=== PATIENT | female | born 1960 | race Caucasian/White ===

== ENCOUNTER 2025-10-10 08:58 | Outpatient (REF) | payer BC, SELFPAY ==
--- OUTSIDE RECORDS SUMMARY | 2025-10-10 10:24 | XMS_ITS | Encounter Summary ---
Author Organization [facility] Address [id number] [place] [address] Phone Care Team Providers Care Postal Support Employee Name Role Phone Tammi Lorenz MD Primary Care Provide r Parish Hopkins MD Unavailable Unavailable Encounter Details Date Type Department Care Team ([facility] st Contact Info) Description 07/24/2021 Procedure Pass [facility] Cardiac Echo [address] [facility] [address] [place] [address] Social History Tobacco Use Types Packs/Day Years Used Date Smoking Tobacco: Never Smokeless Tobacco: Never Comments Unknown Sex and Gender Information Value Date Recorded Sex Assigned at Not on file Legal Sex Female 6:02 PM EST Gender Identity Not on file Sexual Orientation Not on file documented as of this encounter Plan of Treatment Not on file documented as of this encounter Visit Diagnoses Not on filedocumented in this encounter Additional Health Concerns Assessment Noted Time PHQ-2 Depression Total Score: 0 07/23/20 19 10:27 AM EDT documented as of this encounter Care Teams Postal Support Employee Relationship Specialty Start Date End Date Tammi Lorenz MD [address] [address] PCP - General 03/16/15 Parish Hopkins MD Historical LMR Provider 03/24/15 11/17/21 documented as of this encounter Additional Source Comments The information contained in this document represents components of the legal health record. It is not the complete legal health record.[facility]
--- OUTSIDE RECORDS SUMMARY | 2025-10-10 10:24 | XMS_ITS | Clinical Summary ---
Author Organization 299 [facility] Address [address] [place] [address] Phone Care Team Providers Care Decal Transferrer Name Role Phone Tammi Lorenz MD Primary Care Provider Encounters Date Type Department Care Team Description 10/05/2025 Lab Requisition [facility] - Main Lab [address] [place] [address] Maria Fernanda See MD Encounter for gynecological examination (general) (routine) without abnormal findings from Last 3 Months Social History Tobacco Use Types Packs/Day Years Used Date Smoking Tobacco: Never Assessed Comments Unknown Sex and Gender Information Value Date Recorded Sex Assigned at Not on file Legal Sex Female 6:22 AM EST Gender Identity Not on file Sexual Orientation Not on file Plan of Treatment Health Maintenance Due Date Last Done Comments Breast Cancer Screening 1961 Colorectal Cancer Screening: Colonoscopy 1961 DTaP,Tdap,and Td Vaccines (1 - Tdap) 1980 Pneumococcal Vaccine: 50+ Ye ars (1 of 1 - PCV) 2011 Zoster Vaccines (1 of 2) 2011 Depression Screening 11/10/2024 COVID-19 Vaccine (1 - 2024-2 6 season) 2025 Influenza Vaccine (#1) 2025 HIV Screening 10/05/2025 Hepatitis C Screening 10/05/2025 Social Influencers of Health Screening 10/05/2025 Cervical Cancer Screening: P ap Smear 10/04/2028 10/04/2025 RSV Immunization Adult Patie nts (1 - 1-dose 75+ series) 2036 HIB Vaccines Aged Out No longer eligi ble based on patient's age to complete this topic HPV Vaccines Aged Out No longer eligi ble based on patient's age to complete this topic Hepatitis A Vaccines Aged Out No long er eligible based on patient's age to complete this topic Hepatitis B Vaccines Aged Out No long er eligible based on patient's age to complete this topic IPV Vaccines Aged Out No longer eligi ble based on patient's age to complete this topic MMR Vaccines Aged Out No longer eligi ble based on patient's age to complete this topic Meningococcal ACWY Vaccine Aged Out N o longer eligible based on patient's age to complete this topic Meningococcal B Vaccine Aged Out No l onger eligible based on patient's age to complete this topic RSV Immunization Patients Un abhinav 20 months Aged Out No longer eligible b ased on patient's age to complete this topic Varicella Vaccines Aged Out No longer eligible based on patient's age to complete this topic Procedures Procedure Name Priority Date/Time Associated Diagnosis Comments PAP SMEAR Routine 10/04/2025 12:00 PM EST Encounter for gynecological examination (general) (routine) without abnormal findings from Last 3 Months Results * Pap smear (10/04/2025 12:00 PM EST) Interpretation Negative for intraepithelial lesion or malignancy 10/07/2025 3:47 PM [facility] at 1547 EST General Categorization Negative 10/07/2025 3:47 PM [facility] Specimen Adequacy Satisfactory for evaluation, endocervical/condon sformation zone component present 10/07/2025 3:47 PM EST [facility] Pap Methodology Liquid Based Pap Test 10/07/2025 3:47 PM [facility] Disclaimer The Pap test is a screening test which carries an inherent false negative rate. These test results should be correlated with the patient's clinical findings and history. This Pap test was processed using an automated screening system. Technical cytopathology services provided by [facility], at [address] [place] [address], [place] [address] (CLIA # [id number]/Phylicia Goldman MD, Southeast Regional Sales Manager.) 10/07/2025 3:47 PM [facility] Console Pap Interpretation Reported 10/07/2025 3:47 PM EST [facility] Brushing/Spatula Cervix uteri structure / Unknown 10/04/2025 12:00 PM EST 10/05/2025 6:29 AM EST us Maria Fernanda See MD LAB CYTOLOGY ORDERABLES Final Result [facility] [address] [place] [address], [place] [phone] from Last 3 Months Insurance [facility] Care Teams Decal Transferrer Relationship Specialty Start Date End Date Tammi Lorenz MD [address] [place] [address] PCP - General Internal Medicine 10/05/25
--- OUTSIDE RECORDS SUMMARY | 2025-10-10 10:24 | XMS_ITS | Clinical Summary ---
Author Organization [facility] Address [address] [address] Phone Care Team Providers Care Lace Sewer Name Role Phone Tammi Lorenz MD Primary Care Provide r Allergies No known active allergies Medications aspirin 81 MG EC tablet Take 81 mg by mouth daily. Active therapeutic multivitamin tablet Take 1 tablet by mouth daily. Active rosuvastatin (CRESTOR) 5 MG tablet Take 1 tablet (5 mg total) by mouth daily. 06/24/2020 Active metoprolol succinate (TOPROL-XL) 25 MG 24 hr tablet Take 12.5 mg by mouth daily. Active cholecalciferol, vitamin D3, (VITAMIN D3 ORAL) Take by mouth. Active Active Problems Problem Noted Date Diagnosed Date Pure hypercholesterolemia 07/23/2019 Status post mitral valve repair 05/01/2018 Uncoded S/P Surgical procedure 12/29/2012 Overview (12/31/2014): S/P Surgical procedure; MVP: 11/17/12 Mitral valve disorder 10/13/2012 Overview (12/31/2014): Mitral valve disorder; severe mitral regurgitation Family History Medical History Relation Comments Heart attack Neg Hx Sudden cardiac Neg Hx Valvular heart disease Neg Hx Social History Tobacco Use Types Packs/Day Years Used Date Smoking Tobacco: Never Smokeless Tobacco: Never Education Answer Date Recorded Are you interested in more education? Not on pablo e 03/16/2023 Are you concerned about learning? Not on file 03/16/2023 No 03/16/2023 No 03/16/2023 Digital Access Answer Date Recorded No 04/05/2023 No 04/05/2023 No 04/05/2023 Reliable internet access at home? Not on file 04/05/2023 Device with a working camera? Not on file Comments Unknown Sex and Gender Information Value Date Recorded Sex Assigned at Not on file Legal Sex Female 6:02 PM EST Gender Identity Not on file Sexual Orientation Not on file Last Filed Vital Signs Vital Sign Reading Time Taken Comments Blood Pressure 138/84 12/25/2022 2:14 PM EST Pulse 75 12/25/2022 2:14 PM EST Temperature - - Respiratory Rate - - Oxygen Saturation 98% 12/25/2022 2:14 PM EST Inhaled Oxygen Concentration - - Weight 71.7 kg (158 lb) 12/25/2022 2:14 PM EST Height 154.9 cm (5' 1 ) 12/25/2022 2:14 PM EST Body Mass Index 29.85 12/25/2022 2:14 PM EST Plan of Treatment Health Maintenance Due Date Last Done Comments HEPATITIS C SCREENING 1979 HIV ONE-TIME SCREENING (18-6 5 YEARS) 1979 PAP SMEAR 1982 MAMMOGRAM 2001 COLOGUARD 2006 COLONOSCOPY 2006 COLORECTAL CANCER SCREENING 2006 FIT TEST 2006 FOBT 2006 SIGMOIDOSCOPY 2006 VIRTUAL COLONOSCOPY 2006 PNEUMOCOCCAL VACCINES (50+ years) (2 of 2 - PCV) 03/02/2014 03/02/2013 SCREENING FOR DIABETES 11/25/2015 11/25/2012 ZOSTER VACCINES (2 of 2) 01/16/2020 11/21/2019 DEPRESSION SCREENING 07/23/2020 07/23/2019 INFLUENZA VACCINE (#1) 2025 2, 08/14/2021, 08/10/2019 COVID-19 VACCINE (3 - 2024-2 6 season) 2025 02/17/2021, 01/27/2021 LIPID PANEL 09/25/2025 09/25/2020, 07/12/2020, 12/24/2019 Adult Td,Tdap Booster 03/28/2027 03/28/2017 RSV VACCINE (1 - 1-dose 75+ series) 2036 SMOKING STATUS SCREENING (On ce After 26 Yrs) Completed 07/24/2021 HEPATITIS A VACCINES Aged Out No long er eligible based on patient's age to complete this topic HIB VACCINES Aged Out No longer eligi ble based on patient's age to complete this topic MENINGOCOCCAL VACCINES (ACWY) Aged Out No longer eligible based on patient's age to complete this topic MENINGOCOCCAL VACCINES (B) Aged Out N o longer eligible based on patient's age to complete this topic Medical Devices Not on file Procedures Procedure Name Priority Date/Time Associated Diagnosis Comments LIPID PANEL Routine 09/25/2020 8:45 AM EST Hyperlipidemia LDL goal <100 from Last 3 Months or Most Recently Relevant to Health Maintenance Results * (ABNORMAL) Lipid panel (09/25/2020 8:45 AM EST) HDL 66 mg/dL [facility] Comment: Interpretation <40 mg/dL: Low HDL cholesterol (major risk factor for CHD) Greater than or equal to 60 mg/dL: High HDL cholesterol ( negative risk factor for CHD) HDL - cholesterol is affected by a number of factors, e.g. smoking, excerise, hormones, sex and age. CHOLESTEROL 177 0 - 240 mg/dL [facility] TRIGLYCERIDES 78 30 - 160 mg/dL [facility] LDL 95 50 - 129 mg/dL [facility] Comment: LDL levels in terms of risk for coronary heart disease: <100 mg/dL: Optimal 100-129 mg/dL: Near or above optimal 130-159 mg/dL: Borderline high 160-189 mg/dL: High >190 mg/dL: Very High CARDIAC RISK RATIO 2.7(L) 3.3 - 4.4 [facility] Blood 09/25/2020 8:45 AM EST 09/25/2020 8:50 AM EST us Yoandy Mcmanus MD LAB BLOOD BKR ORDERABLES Final Result [address] [phone] from Last 3 Months or Most Recently Relevant to Health Maintenance Insurance [place] [address] [place] [address] [place] [address] [place] [address] [place] [address] [place] [address] [place] [address] [place] [address] [place] [address] Care Teams Lace Sewer Relationship Specialty Start Date End Date Tammi Lorenz MD [address] [address] PCP - General 03/16/15 Additional Source Comments The information contained in this document represents components of the legal health record. It is not the complete legal health record.[facility]
--- OUTSIDE RECORDS SUMMARY | 2025-10-10 10:24 | XMS_ITS | Encounter Summary ---
Author Organization [facility] Address [address] [place] [phone] Phone Care Team Providers Care Transportation Logistics Internship Name Role Phone Tammi Lorenz MD Primary Care Provide r Parish Hopkins MD Unavailable Unavailable Encounter Details Date Type Department Care Team ([facility] st Contact Info) Description 07/24/[address] [facility] EKG [address] [place] [address] Social History Tobacco Use Types Packs/Day Years [...] documented as of this encounter Care Teams Transportation Logistics Internship Relationship Specialty Start Date End Date Tammi Lorenz MD 57 [facility] [address] [place] [address] PCP - General 03/16/15 Parish Hopkins MD Historical LMR Provider 03/24/15 11/17/21 documented as of this encounter Additional Source Comments The information contained in this document represents components of the legal health record. It is not the complete legal health record.[facility]
--- OUTSIDE RECORDS SUMMARY | 2025-10-10 10:24 | XMS_ITS | Encounter Summary ---
Author Organization [facility] Address [address] [address] Phone Care Team Providers Care Director Of Student Services Name Role Phone Tammi Lorenz MD Primary Care Provide r Parish Hopkins MD Unavailable Unavailable Encounter Details Date Type Department Care Team (Late st Contact Info) Description 08/06/2021 Ancillary Orders [facility] [address] [place] [phone] Kavin Bowman MD [address] [place] [address], [address] [place] [address] [email or web address] Near syncope Social History Tobacco Use Types Packs/Day Years Used Date Smoking Tobacco: Never Smokeless Tobacco: Never Comments Unknown Sex and Gender Information Value Date Recorded Sex Assigned at Not on file Legal Sex Female 6:02 PM EST Gender Identity Not on file Sexual Orientation Not on file documented as of this encounter Plan of Treatment Not on file documented as of this encounter Results * Event Monitor Looping up to 30 Days (07/24/2021 11:15 PM EDT) Anatomical Region Laterality Modality Heart Other 08/30/2021 11:5 9 PM EDT Narrative 09/02/2021 3:09 PM EDT Physician Comments: The patient's monitoring period was 08/01/2021 - 021. Baseline sample showed Sinus Rhythm w/PVCs (2 in 1 min) with a heart ra te of 82.3 bpm. There were 0 critical, 0 serious, and 10 stable events that occurred. Events appear to correspond to PVCs (overall burden 1%). Manually Detected Events: 2 Stable: Sinus Rhythm w/Artifact/Lead Loss . None or Accidental Push 1 Stable: Sinus Rhythm w/PVCs (1 in 1 min)/Artifact . Flutter or Skipped Beats 1 Stable: Sinus Rhythm w/PVCs (4 In 1Min)/Artifact . Flutter or Skipped Beats 1 Stable: Sinus Rhythm w/Artifact . None or Accidental Push 1 Stable: Sinus Rhythm w/Couplet PVCs/PVCs (3 in 1 min)/Atrial Run . Flutter or Skipped Beats 1 Stable: Sinus Rhythm w/PVCs (1 in 1 min)/Artifact/Lead Loss . None or Accidental Push 2 Stable: Sinus Rhythm w/Artifact . Chest Pain or Pressure Automatically Detected Events: 1 Stable: Sinus Rhythm w/PVCs (2 in 1 min) Electronically Reviewed by KAYLA DAIGLE MD on 09/02/2021 3:08PM (MD). Procedure Note Kayla Daigle MD, MS - 09/02/2021 Physician Comments: The patient's monitoring period was 08/01/2021 - 021. Baseline sample showed Sinus Rhythm w/PVCs (2 in 1 min) with a heartra te of 82.3 bpm. There were 0 critical, 0 serious, and 10 stable eventsthat occurred. Events appear to correspond to PVCs (overall burden 1%). Manually Detected Events: 2 Stable: Sinus Rhythm w/Artifact/Lead Loss . None or Accidental Push 1 Stable: Sinus Rhythm w/PVCs (1 in 1 min)/Artifact . Flutter or Skipped Beats 1 Stable: Sinus Rhythm w/PVCs (4 In 1Min)/Artifact . Flutter or Skipped Beats 1 Stable: Sinus Rhythm w/Artifact . None or Accidental Push 1 Stable: Sinus Rhythm w/Couplet PVCs/PVCs (3 in 1 min)/Atrial Run . Flutter or Skipped Beats 1 Stable: Sinus Rhythm w/PVCs (1 in 1 min)/Artifact/Lead Loss . None or Accidental Push 2 Stable: Sinus Rhythm w/Artifact . Chest Pain or Pressure Automatically Detected Events: 1 Stable: Sinus Rhythm w/PVCs (2 in 1 min) Electronically Reviewed by KAYLA DAIGLE MD on 09/02/2021 3:08PM (CT). us Kavin Bowman MD CV CARDIAC SERVICES ORDERABLE S Final Result documented in this encounter Visit Diagnoses Diagnosis Near syncope Near syncope documented in this encounter Additional Health Concerns Assessment Noted Time PHQ-2 Depression Total Score: 0 07/23/20 19 10:27 AM EDT documented as of this encounter Care Teams Director Of Student Services Relationship Specialty Start Date End Date Tammi Lorenz MD [address] [address] PCP - General 03/16/15 Parish Hopkins MD Historical LMR Provider 03/24/15 11/17/21 documented as of this encounter Additional Source Comments The information contained in this document represents components of the legal health record. It is not the complete legal health record.[facility]
--- OUTSIDE RECORDS SUMMARY | 2025-10-10 10:24 | XMS_ITS | Encounter Summary ---
Author Organization [facility] Address [address] [place] [address] Care Team Providers Care Die Set Up Worker Name Role Phone Tammi Lorenz MD Primary Care Provider Encounter Details Date Type Department Care Team (Latest Contact Info) Description 10/05/2025 Lab Requisition [facility] - Main Lab [address] [facility] [place] [address] Maria Fernanda See MD [address] [address] Encounter for gynecological examination (general) (routine) without abnormal findings Social History Tobacco Use Types Packs/Day Years Used Date Smoking Tobacco: Never Assessed Comments Unknown Sex and Gender Information Value Date Recorded Sex Assigned at Not on file Legal Sex Female 6:22 AM EST Gender Identity Not on file Sexual Orientation Not on file documented as of this encounter Plan of Treatment Not on file documented as of this encounter Procedures Procedure Name Priority Date/Time Associated Diagnosis Comments PAP SMEAR Routine 10/04/2025 12:00 PM EST Encounter for gynecological examination (general) (routine) without abnormal findings documented in this encounter Results * Pap smear (10/04/2025 12:00 PM EST) Interpretation Negative for intraepithelial lesion or malignancy 10/07/2025 3:47 PM EST [facility] at 1547 EST General Categorization Negative 10/07/2025 3:47 PM EST [facility] Specimen Adequacy Satisfactory for evaluation, endocervical/condon sformation zone component present 10/07/2025 3:47 PM EST [facility] Pap Methodology Liquid Based Pap Test 10/07/2025 3:47 PM EST [facility] Disclaimer The Pap test is a screening test which carries an inherent false negative rate. These test results should be correlated with the patient's clinical findings and history. This Pap test was processed using an automated screening system. Technical cytopathology services provided by [facility], at [address] [place] [address] (CLIA # [id number]/Phylicia Goldman MD, Shoe Maker.) 10/07/2025 3:47 PM [facility] Console Pap Interpretation Reported 10/07/2025 3:47 PM [facility] Brushing/Spatula Cervix uteri structure / Unknown 10/04/2025 12:00 PM EST 10/05/2025 6:29 AM EST us Maria Fernanda See MD LAB CYTOLOGY ORDERABLES Final Result [facility] [address] [place] [address], documented in this encounter Visit Diagnoses Diagnosis Encounter for gynecological examination (general) (routine) without abnormal findings documented in this encounter Care Teams Die Set Up Worker Relationship Specialty Start Date End Date Tammi Lorenz MD [address] [place] [phone] PCP - General Internal Medicine 10/05/25 documented as of this encounter
[2025-10-10 12:08] LABS: Cholesterol 185 mg/dL (<200); HDL Cholesterol 56 mg/dL (>40)
[2025-10-15 14:47] LABS: Lipoprotein Asso Phospholip A2 109 (<124)
== END 2025-10-10 08:59 | disposition home or self-care (01) ==
LOC: HO.WFDLDS 08:58
PROVIDERS: Visit Provider Internal Medicine
DX: E78.00 Pure hypercholesterolemia, unspecified (principal)
CPT/HCPCS: 36415; 82172; 82465; 83698; 83718; 83721